=== PATIENT | male | born 1990 | race Caucasian/White ===

== ENCOUNTER 2021-02-05 04:42 | Emergency (ER) | payer SELFPAY ==
[2021-02-05 05:11] VITALS: BP 113/78; PULSE 92; TEMP 97.9; BMI 22.5
[2021-02-05] MEDS ORDERED: MAG HYDROX/AL HYDROX/SIMETH -MYLANTA- ORAL SUSPENSION PO ONE (05:21)
[2021-02-05] MEDS ORDERED: ACETAMINOPHEN 500 MG TABLET (FP) PO ONE (05:21)
[2021-02-05] MEDS ORDERED: FAMOTIDINE 10 MG TABLET PO ONE (05:21)
[2021-02-05] MEDS ORDERED: MAG HYDROX/AL HYDROX/SIMETH 30 ML UNIT-DOSE CUP ONE (05:28)
[2021-02-05] MEDS ORDERED: FAMOTIDINE 10 MG TABLET ONE (05:28)
[2021-02-05] MEDS ORDERED: ACETAMINOPHEN 325 MG TABLET (FP) ONE (05:28)
== END 2021-02-05 06:35 | disposition home or self-care (01) ==
LOC: JER 04:42
DX: R10.9 Unspecified abdominal pain (principal)
CPT/HCPCS: 99283-25